=== PATIENT | female | born 1990 | race Caucasian/White ===

== ENCOUNTER 2018-10-12 04:50 | Emergency (ER) | payer MEDICAID ==
[~2018-10-12] VITALS: Ht 149.9 cm; Wt 60.4 kg
[2018-10-12 05:01] VITALS: BP 138/81
[2018-10-12 05:20] VITALS: BP 138/81
[2018-10-12] MEDS ORDERED: ONDANSETRON 4 MG TAB PO ONE (05:25)
[2018-10-12] MEDS ORDERED: MORPHINE SULFATE 4 MG/ML SYR IM ONE (05:25)
== END 2018-10-12 06:59 | disposition home or self-care (01) ==
LOC: MED 04:50
DX: G43.909 Migraine, unspecified, not intractable, without status migrainosus (principal)
CPT/HCPCS: 81025; 96372; 99283; J2270; Q0162